=== PATIENT | male | born 1975 | race Caucasian/White ===

== ENCOUNTER 2017-03-12 07:34 | Emergency (ER) | payer SELFPAY ==
[~2017-03-12] VITALS: Ht 185.4 cm; Wt 92.7 kg
[2017-03-12 07:36] VITALS: BP 128/77
[2017-03-12] MEDS ORDERED: LIDOCAINE 1%, 20ML ONE (08:23)
[2017-03-12] MEDS ORDERED: HYDROcodone/APAP 5/325 TABLET ONE (08:23)
[2017-03-12] MEDS ORDERED: DIPH,PERTUSS(ACELL),TET VAC/PF 0.5 ML IM-VACC ONE ×2 (08:23→08:30)
[2017-03-12] MEDS ORDERED: HYDROcodone/APAP 5/325 TABLET PO ONE (08:30)
[2017-03-12] MEDS ORDERED: LIDOCAINE 1%, 20ML SQ ONE (08:30)
== END 2017-03-12 09:46 | disposition home or self-care (01) ==
LOC: ED 08:18
DX: L02.415 Cutaneous abscess of right lower limb (principal); F17.210 Nicotine dependence, cigarettes, uncomplicated
CPT/HCPCS: 10060; 90471; 90715

== ENCOUNTER 2017-03-14 14:59 | Emergency (ER) | payer OTHER ==
[~2017-03-14] VITALS: Ht 185.4 cm; Wt 91.6 kg
[2017-03-14 15:01] VITALS: BP 115/67
[2017-03-14] MEDS ORDERED: LIDOCAINE 1%, 20ML ONE (15:22)
[2017-03-14] MEDS ORDERED: HYDROcodone/APAP 5/325 TABLET ONE (15:22)
[2017-03-14] MEDS ORDERED: HYDROcodone/APAP 5/325 TABLET PO ONE (15:30)
[2017-03-14] MEDS ORDERED: LIDOCAINE 1%, 10ML INFIL ONE (15:30)
== END 2017-03-14 15:43 | disposition home or self-care (01) ==
LOC: ED 15:37
DX: L02.415 Cutaneous abscess of right lower limb (principal); L03.115 Cellulitis of right lower limb
CPT/HCPCS: 99283

== ENCOUNTER 2017-03-21 18:10 | Emergency (ER) | payer OTHER ==
[~2017-03-21] VITALS: Ht 185.4 cm; Wt 93.1 kg
[2017-03-21 18:12] VITALS: BP 119/78
[2017-03-21] MEDS ORDERED: OXYcodone/APAP 5/325MG TABLET ONE (18:26)
[2017-03-21] MEDS ORDERED: OXYcodone/APAP 5/325MG TABLET PO ONE (18:30)
== END 2017-03-21 19:37 | disposition home or self-care (01) ==
LOC: ED 19:22
DX: L03.115 Cellulitis of right lower limb (principal); L02.415 Cutaneous abscess of right lower limb
CPT/HCPCS: 99284

== ENCOUNTER 2017-04-14 03:47 | Emergency (ER) | payer SELFPAY ==
[~2017-04-14] VITALS: Ht 185.4 cm; Wt 95.0 kg
[2017-04-14] MEDS ORDERED: MAGNESIUM SULFATE 1 GM, THIAMINE 100 MG, FOLIC ACID 1 MG, MVI ADULT 10 ML in SODIUM CHL... IV ONE (04:00)
[2017-04-14] MEDS ORDERED: LORazepam 2 MG/ML, 1ML IVPush PRN (04:00)
[2017-04-14] MEDS ORDERED: SODIUM CHLORIDE FLUSH 10ML SYR IVF ONE (04:00)
[2017-04-14] MEDS ORDERED: LORazepam 2 MG/ML, 1ML ONE (04:13)
[2017-04-14 04:49] LABS: HEMATOCRIT 54.2 % (39.2-51.8); HEMOGLOBIN 18.9 g/dL (13.7-18.0); WHITE BLOOD COUNT 10.7 x10^3/uL (3.4-10)
[2017-04-14 04:50] LABS: ASPARTATE AMINO TRANSFERASE 74 U/L (15-37); BLOOD UREA NITROGEN 25 mg/dL (7-18)
[2017-04-14] MEDS ORDERED: THIAMINE 100MG TABLET ONE (05:10)
[2017-04-14] MEDS ORDERED: SODIUM CHLORIDE 0.9% 1,000ML IVBOLUS ONE (05:30)
[2017-04-14] MEDS ORDERED: THIAMINE 100MG TABLET PO ONE (05:30)
[2017-04-14 05:48] VITALS: BP 130/86
== END 2017-04-14 05:56 | disposition home or self-care (01) ==
LOC: ED 04:05
DX: F10.232 Alcohol dependence with withdrawal with perceptual disturbance (principal)
CPT/HCPCS: 36415; 80053; 80307; 85025; 93005; 96365; 96375; 99285; J2060; J3411; J3475; J7030; G0479